=== PATIENT | male | born 1965 | race Caucasian/White ===

== ENCOUNTER → 2016-08-24 | Outpatient (CLI) | payer BC, OTHER ==
[2014-01-22 20:06] VITALS: BP 152/76
--- NOTE | 2016-08-24 10:25 | RAD ---
HISTORY: Right knee pain, nontraumatic Study: Right knee three view Comparison: None Findings: No evidence for acute cortical disruption or dislocation. The medial and lateral tibiofemoral jeanette rtments appear unremarkable without loss of significant joint space. The lateral radiograph fails t o demonstrate significant joint effusion. Patellofemoral compartment is normal in its appearance. IMPRESSION: 1. Negative exam. Reported By:
--- NOTE | 2016-08-24 10:26 | RAD ---
HISTORY: Chronic low back pain Study: Lumbar spine three view Comparison: None Findings: Normal alignment of the lumbar spine is maintained. The posterior elements appear unremarkable in t heir appearance. The disk space height is maintained without significant endplate sclerosis. No ev idence for acute fracture can be identified. Spondylitic changes present anteriorly at L3-4. Facet d egenerative joint disease is present bilaterally at L5-S1. IMPRESSION: 1. Facet degenerative joint disease bilaterally L5-S1. 2. Spondylitic change anteriorly L3-4 Reported By:
== END | disposition home or self-care (01) | DRG 552 ==
LOC: RAD 09:57
PROVIDERS: ATTEND Internal Medicine
DX: M54.5 Low back pain (principal); M25.561 Pain in right knee; M47.897 Other spondylosis, lumbosacral region
CPT/HCPCS: 72100; 73560

== ENCOUNTER 2017-01-28 19:49 | Emergency (ER) | payer BC ==
[2017-01-28 19:55] VITALS: BMI 34.4
[2017-01-28] MEDS ORDERED: TORADOL 60 MG VIAL IM ONE (20:31)
[2017-01-28] MEDS ORDERED: AMOXIL CAP 500 MG PO ONE ×2 (20:33→20:40)
--- NOTE | 2017-01-28 20:33 | DR.GENAD ---
HPI - PCP Primary Care Physician: LAURA Valera HPI Comment HPI Comment: HISTORY BELOW. - Complaint/Symptoms Chief Complaint Doctors Comments: TOOTHACHE TIMES FEW DAYS. WORSE TODAY. NO FEVER. PAIN INTERFERRING WITH CHEWING. Chief Complaint:: LT UPPER TOOTH ACHE PT STATES" ITS ABCESSED AND I WAS MESSING WITH IT AND NOW THE PAIN WON'T STOP" - Nurses notes reviewed Nurses Notes Review: Yes - Source History Provided: Patient - Timing Onset of Chief Complaint: 01/28/17 Came on: Gradually - Duration Duration: Constant Duration: Days - Severity Severity: Moderate PMH - PMH Past Medical History: No Past Surgical History: No - Family History History of Family Medical Conditions: Yes Family Medical History: [place], Coronary Artery Disease - Social History Does any household member use tobacco: No Alcohol Use: None Do you use any recreational Drugs:: No Lives With: Family Lives Where: Home - infectious screening In the last 2 months have you had wt loss of >10#?: NO Have you had fever, night sweats or hemotysis?: No Have you traveled outside the country in the last 6 months?: No Isolation: Standard ROS - Review of Systems Constitutional: No Symptoms Reported Eyes: No Symptoms Reported. negative: Eye Pain, Discharge ENTM: No Symptoms Reported, Mouth Pain, Loose Teeth (SWOLLEN LEFT UPPER 1ST MOLAR.). negative: Ear Pain, Nose Discharge, Nose Congestion, Throat Pain Respiratoy: No Symptoms Reported Cardiovascular: Palpitations Gastrointestinal/Abdominal: No Symptoms Reported Genitourinary: No Symptoms Reported Neurological: No Symptoms Reported Musculoskeletal: No Symptoms Reported Integumentary: No Symptoms Reported Hematologic/Lymphatic: No Symptoms Reported Endocrine: No Symptoms Reported All Other Systems: Reviewed and Negative PE - Vital Signs Vitals: Temperature 98.2 F Pulse Rate [Left Brachial] 82 Pulse Rate 90 Respiratory Rate 18 Blood Pressure [Left Arm] 152/85 Blood Pressure 155/79 O2 Sat by Pulse Oximetry 97 - General Limitations: No Limitations General Appearance: Alert - Head Head Exam: Normal Inspection - Eyes Eye exam: Normal Appearance - ENT ENT Exam: Normal External Ear Exam External Ear Exam: Normal External Inspection TM/Canal Exam: Bilateral Normal Nose Exam: Normal Nose Exam Mouth Exam: Normal Inspection. negative: Trismus Throat Exam: Normal Inspection, Other (UPPER FIRST MOLAR LT SWOLLEN AND TENDER.) - Neck Neck Exam: Trachea Midline - Chest Chest Inspection: Symmetric Chest Wall Rise - Respiratory Respiratory Exam: Normal Lung Sounds Bilat Respiratory Exam: Bilateral Clear to Auscultation - Cardiovascular Cardiovascular Exam: Regular Rate, Normal Rhythm, Normal Heart Sounds - Abdominal Exam Abdominal Exam: Normal Inspection - Extremities Extremities Exam: Normal Inspection - Back Back Exam: Normal Inspection - Neurologic Neurological Exam: Alert - Psychiatric Psychiatric Exam: Normal Mood - Skin Skin Exam: Normal Color Course - Treatment Treatment: SEE ORDERS. - Education/Counseling Education/Counseling: Patient, Education Educated On: Treatment, Diagnosis, Needs for Follow Up - Diagnosis Discharge Problem: Pain, dental, Gingivitis - Discharge Plan Disposition: HOME, SELF-CARE Condition: Stable Prescriptions: Acetaminophen with Codeine [Tylenol/Codeine #3 300-30 mg] 1 tab PO Q4-6H PRN # 15 tab PRN Reason: Pain Amoxicillin [Amoxil 875 mg] 875 mg PO Q12H #20 tab Ibuprofen [MOTRIN TAB 800 MG *] 800 mg PO Q8H PRN #20 tab PRN Reason: Pain/Inflammation - Follow ups/Referrals Follow ups/Referrals: Aure SANCHEZ [Primary Care Provider] - 3 days - Instructions Instructions: Gingivitis, [id number], Dental Abscess, [id number] Additional Instructions: RETURN TO ED IF WORSE.
[2017-01-28] MEDS ORDERED: TORADOL 60 MG VIAL ONE (20:40)
[2017-01-28 20:58] VITALS: BP 152/85
== END 2017-01-28 20:59 | disposition home or self-care (01) ==
LOC: ER 20:01
DX: K05.10 Chronic gingivitis, plaque induced (principal); K08.89 Other specified disorders of teeth and supporting structures
CPT/HCPCS: 96372; 99282; J1885